=== PATIENT | female | born 1975 | race Hispanic/Latino ===

== ENCOUNTER 2020-07-12 08:52 | Emergency (ER) | payer SELFPAY ==
[2020-07-12] MEDS ORDERED: KETOROLAC 30MG VIAL (30MG/ML) ONE (09:08)
== END 2020-07-12 10:11 | disposition home or self-care (01) ==
LOC: EDH 08:52
DX: R07.89 Other chest pain (principal); Z72.0 Tobacco use; Z90.710 Acquired absence of both cervix and uterus
CPT/HCPCS: 71045; 93005; 96374; 99283; J1885

== ENCOUNTER 2020-09-06 10:49 | Emergency (ER) | payer SELFPAY ==
[2020-09-06] MEDS ORDERED: HYDROCODONE/ACETAMINOPHEN 10/325 MG TAB ONE (11:51)
[2020-09-06] MEDS ORDERED: KETOROLAC TROMETHAMINE 60 MG/2 ML VIAL ONE (11:52)
== END 2020-09-06 12:34 | disposition home or self-care (01) ==
LOC: EDH 10:49
DX: S80.01XA Contusion of right knee, initial encounter (principal); M17.11 Unilateral primary osteoarthritis, right knee; M41.9 Scoliosis, unspecified; Z72.0 Tobacco use; Z90.710 Acquired absence of both cervix and uterus; X58.XXXA Exposure to other specified factors, initial encounter; Y93.89 Activity, other specified; Y92.89 Other specified places as the place of occurrence of the external cause; Y99.8 Other external cause status
CPT/HCPCS: 29505; 73562; 96372; 99283; J1885

== ENCOUNTER 2020-11-09 04:58 | Emergency (ER) | payer SELFPAY ==
[~2020-11-09] VITALS: Ht 152.4 cm; Wt 81.6 kg
[2020-11-09] MEDS ORDERED: MAG HYDROX/AL HYDROX/SIMETH ES 30 ML SUSP UDCUP PO ONE (04:59)
[2020-11-09] MEDS ORDERED: LIDOCAINE HCL 2% VISCOUS 15 ML UDCUP PO ONE (04:59)
[2020-11-09] MEDS ORDERED: PREDNISONE 20 MG TABLET PO ONE (04:59)
[2020-11-09 05:16] VITALS: BP 120/60
[2020-11-09] MEDS ORDERED: ALBU8.5H8 IH (06:31)
[2020-11-09] MEDS ORDERED: BENZ-17 PO (06:31)
[2020-11-09] MEDS ORDERED: MAG HYDROX/AL HYDROX/SIMETH ES 30 ML SUSP UDCUP PO SCH (06:55)
[2020-11-09] MEDS ORDERED: LIDOCAINE HCL 2% VISCOUS 15 ML UDCUP PO SCH (06:55)
[2020-11-09] MEDS: PREDNISONE 20 MG TABLET PO SCH ×2 (07:03→07:04)
[2020-11-09 07:04] VITALS: BP 124/75
== END 2020-11-09 07:05 | disposition home or self-care (01) ==
LOC: EDH 04:58
DX: B34.9 Viral infection, unspecified (principal); R05 Cough; R07.89 Other chest pain; Z72.0 Tobacco use
CPT/HCPCS: 87635; 99284; C9803

== ENCOUNTER 2021-02-08 18:26 | Emergency (ER) | payer OTHER ==
[~2021-02-08] VITALS: Ht 152.4 cm; Wt 79.4 kg
[~2021-02-08 18:26] MED LIST: ALBU8.5H8 IH; BENZ-17 PO
[2021-02-08] MEDS ORDERED: D-ME1POW16 PO (19:25)
[2021-02-08] MEDS ORDERED: FLUT1DIS IH (19:25)
[2021-02-08] MEDS ORDERED: ALBUHFA IH (19:25)
[2021-02-08] MEDS ORDERED: IVER3TAB PO (19:25)
[2021-02-08 20:12] VITALS: BP 138/61
== END 2021-02-08 20:13 | disposition home or self-care (01) ==
LOC: EEVIPCON 18:26 → EDH 18:26
DX: U07.1 COVID-19 (principal); J22 Unspecified acute lower respiratory infection; B34.9 Viral infection, unspecified; F17.200 Nicotine dependence, unspecified, uncomplicated; Z79.51 Long term (current) use of inhaled steroids; Z79.899 Other long term (current) drug therapy
CPT/HCPCS: 87635; 87804 ×2; 87880; 99283; C9803

== ENCOUNTER 2022-10-11 20:40 | Emergency (ER) | payer OTHER ==
[~2022-10-11] VITALS: Ht 152.4 cm; Wt 56.2 kg
[~2022-10-11 20:40] MED LIST changes: +ALBUHFA IH; +D-ME1POW16 PO; +FLUT1DIS IH; +IVER3TAB PO
[2022-10-11] MEDS ORDERED: 0.9%NACL 1000ML 1,000 ML IV ONE (21:00)
[2022-10-11 21:14] LABS: BASOPHILS % (AUTO) 0.4 % (0.0-5.0); EOSINOPHILS % (AUTO) 0.8 % (0.0-8.0); HEMATOCRIT 35.4 % (36-48); LYMPHOCYTES % (AUTO) 38.5 % (21.0-51.0); MEAN CORPUSCULAR HEMOGLOBIN 27.8 pg (27.0-33.0); MEAN CORPUSCULAR HGB CONC 32.2 g/dL (32.0-36.0); MEAN CORPUSCULAR VOLUME 86.3 fL (79-99); MONOCYTES % (AUTO) 10.5 % (3.0-13.0); NEUTROPHILS % (AUTO) 49.6 % (40.0-77.0); PLATELET COUNT (AUTO) 253 K/uL (130-400); RED CELL DISTRIBUTION WIDTH 12.1 % (11.0-15.5); WHITE BLOOD COUNT (AUTO) 5.1 K/uL (4.8-10.8)
[2022-10-11 21:20] LABS: APPEARANCE,URINE CLEAR (CLEAR); BILIRUBIN,URINE NEGATIVE (NEGATIVE); COLOR,URINE LIGHT-YELLOW (YELLOW); GLUCOSE, URINE (UA) NEGATIVE (NEGATIVE); KETONES,URINE NEGATIVE (NEGATIVE); LEUKOCYTE ESTERASE ,URINE NEGATIVE Leu/uL (NEGATIVE); NITRATE,URINE NEGATIVE (NEGATIVE); OCCULT BLOOD,URINE NEGATIVE (NEGATIVE); PROTEIN,URINE NEGATIVE (NEGATIVE); UROBILINOGEN,URINE 0.2 mg/dL (0.2-1.0)
[2022-10-11 21:28] LABS: CREATININE 0.5 mg/dL (0.5-1.5); POTASSIUM 3.6 mmol/L (3.5-5.1)
[2022-10-11 21:33] LABS: ALBUMIN 3.5 g/dL (3.5-5.0); TOTAL PROTEIN, SERUM 7.5 g/dL (6.0-8.3)
[2022-10-11] MEDS ORDERED: KETOROLAC 15MG/ML VIAL (15MG/ML) IV ONE (22:00)
[2022-10-11] MEDS ORDERED: MORPHINE 2 MG SYG IVP ONE (22:00)
[2022-10-11] MEDS ORDERED: ACET-2079 PO (22:40)
[2022-10-11] MEDS ORDERED: IBUP-2070 PO (22:40)
[2022-10-11 22:54] VITALS: BP 132/81
== END 2022-10-11 22:55 | disposition home or self-care (01) ==
LOC: EDH 20:40
DX: M25.552 Pain in left hip (principal); M41.9 Scoliosis, unspecified; M54.50 Low back pain, unspecified; Z79.899 Other long term (current) drug therapy; Z98.890 Other specified postprocedural states; Z90.710 Acquired absence of both cervix and uterus
CPT/HCPCS: 99284; 96374; 96361; 96375; 80053; 85025; 81003; 36415; 73502; 72100; J7030; J1885

== ENCOUNTER 2022-11-02 07:20 | Emergency (ER) | payer OTHER ==
[~2022-11-02] VITALS: Ht 152.4 cm; Wt 56.7 kg
[~2022-11-02 07:20] MED LIST changes: +ACET-2079 PO; +IBUP-2070 PO
[2022-11-02 07:29] VITALS: BP 153/63
[2022-11-02 07:45] LABS: APPEARANCE,URINE CLEAR (CLEAR); BILIRUBIN,URINE NEGATIVE (NEGATIVE); COLOR,URINE YELLOW (YELLOW); GLUCOSE, URINE (UA) NEGATIVE (NEGATIVE); KETONES,URINE NEGATIVE (NEGATIVE); LEUKOCYTE ESTERASE ,URINE 250 Leu/uL (NEGATIVE); NITRATE,URINE NEGATIVE (NEGATIVE); OCCULT BLOOD,URINE NEGATIVE (NEGATIVE); PROTEIN,URINE 10 mg/dL (NEGATIVE); UROBILINOGEN,URINE 0.2 mg/dL (0.2-1.0)
[2022-11-02 07:52] LABS: AMPHET/METH SCREEN,URINE NEGATIVE (NEGATIVE); BARBITURATE SCREEN, URINE NEGATIVE (NEGATIVE); BENZODIAZEPINES SCREEN,URINE NEGATIVE (NEGATIVE); CANNABINOID SCREEN,URINE NEGATIVE (NEGATIVE); COCAINE SCREEN,URINE POSITIVE (NEGATIVE); OPIATE SCREEN,URINE NEGATIVE (NEGATIVE); PHENCYCLIDINE SCREEN,URINE NEGATIVE (NEGATIVE)
[2022-11-02 07:53] LABS: BACTERIA,URINE RARE /HPF (None Seen); MUCUS,URINE RARE LPF (None Seen); SQUAMOUS EPITHELIAL CELL,UR RARE /HPF (0-2); TRANSITIONAL EPI CELLS,URINE RARE /HPF (None Seen)
[2022-11-02 07:56] LABS: BASOPHILS % (AUTO) 0.4 % (0.0-5.0); HEMATOCRIT 32.3 % (36-48); LYMPHOCYTES % (AUTO) 46.8 % (21.0-51.0); MEAN CORPUSCULAR HEMOGLOBIN 28.5 pg (27.0-33.0); MEAN CORPUSCULAR HGB CONC 33.1 g/dL (32.0-36.0); MEAN CORPUSCULAR VOLUME 85.9 fL (79-99); MONOCYTES % (AUTO) 9.2 % (3.0-13.0); NEUTROPHILS % (AUTO) 42.5 % (40.0-77.0); PLATELET COUNT (AUTO) 214 K/uL (130-400); RED BLOOD CELL COUNT(AUTO) 3.76 MIL/uL (4.00-5.50); RED CELL DISTRIBUTION WIDTH 12.1 % (11.0-15.5); WHITE BLOOD COUNT (AUTO) 8.4 K/uL (4.8-10.8)
[2022-11-02 08:12] LABS: CARBON DIOXIDE 29 mmol/L (21-32); CHLORIDE 106 mmol/L (101-111); CREATININE 0.4 mg/dL (0.5-1.5); GLOMERULAR FILTR. RATE CALC 121 mL/min (>90); GLUCOSE,RANDOM 96 mg/dL (70-105); POTASSIUM 3.6 mmol/L (3.5-5.1); SODIUM SERUM 140 mmol/L (136-145); UREA NITROGEN, BLOOD 20 mg/dL (7-18)
[2022-11-02 08:16] LABS: ALANINE AMINOTRANSFERASE 30 U/L (12-78); ALBUMIN 3.5 g/dL (3.5-5.0); ASPARTATE AMINOTRANSFERASE 23 U/L (10-37)
[2022-11-02 08:23] LABS: ACETAMINOPHEN < 1 mcg/mL (10-30); SALICYLATE < 2.8 mg/dL (2.8-20.0)
[2022-11-02] MEDS ORDERED: CEPHALEXIN 500 MG CAPSULE PO ONE (09:30)
[2022-11-02] MEDS ORDERED: MACR100 PO (12:39)
== END 2022-11-02 12:48 | disposition home or self-care (01) ==
LOC: EDH 07:20
DX: F32.A Depression, unspecified (principal); N30.00 Acute cystitis without hematuria; F14.10 Cocaine abuse, uncomplicated; F41.9 Anxiety disorder, unspecified; Z20.822 Contact with and (suspected) exposure to COVID-19; Z90.710 Acquired absence of both cervix and uterus; Z79.899 Other long term (current) drug therapy; Z98.890 Other specified postprocedural states
CPT/HCPCS: 99283; 87635; 80053; 80305; 85025; 87088; 36415; 81001; G0481; C9803

== ENCOUNTER 2024-02-26 14:35 | Emergency (ER) | payer SELFPAY ==
[~2024-02-26] VITALS: Ht 152.4 cm; Wt 83.5 kg
[~2024-02-26 14:35] MED LIST changes: -ACET-2079 PO; -ALBU8.5H8 IH; -ALBUHFA IH; +ATEN25TA PO; -BENZ-17 PO; -D-ME1POW16 PO; -FLUT1DIS IH; -IBUP-2070 PO; -IVER3TAB PO; +METHI10 PO
[2024-02-26] MEDS: ibuPROFEN 800 MG TAB PO ONE (15:35)
[2024-02-26] MEDS: HYDROcodone/APAP 5/325 1 TAB TABLET PO ONE (15:35)
[2024-02-26] MEDS ORDERED: IBUP-2077 PO (16:42)
[2024-02-26 16:56] VITALS: BP 124/68; PULSE 74; RESP 20; TEMP 97.5; O2SAT 99
== END 2024-02-26 17:08 | disposition home or self-care (01) ==
LOC: EDH 14:35
DX: S83.91XA Sprain of unspecified site of right knee, initial encounter (principal); F31.9 Bipolar disorder, unspecified; F41.9 Anxiety disorder, unspecified; E03.9 Hypothyroidism, unspecified; F17.210 Nicotine dependence, cigarettes, uncomplicated; Z79.899 Other long term (current) drug therapy; Z90.710 Acquired absence of both cervix and uterus; Z98.890 Other specified postprocedural states; W01.0XXA Fall on same level from slipping, tripping and stumbling without subsequent striking against object, initial encounter; Y93.89 Activity, other specified; Y92.89 Other specified places as the place of occurrence of the external cause; Y99.8 Other external cause status
CPT/HCPCS: 29505; 73562

== ENCOUNTER 2024-05-15 15:15 | Emergency (ER) | payer SELFPAY ==
[~2024-05-15] VITALS: Ht 152.4 cm; Wt 86.2 kg
[~2024-05-15 15:15] MED LIST changes: +IBUP-2077 PO; +METH-1037 PO; -METHI10 PO
--- NOTE | 2024-05-15 15:26 | ERN ---
ED Note History of Present Illness Stated Complaint: ABD PAIN Chief Complaint: Abdominal Pain Time Seen by MD: 15:17 Dictation: PATIENT IS A 48-YEAR-OLD FEMALE COMING IN TODAY WITH MID GASTRIC PAIN TENDERNESS SHE HAS HAD FOR SEVERAL DAYS. SHE DENIES FEVER CHILLS NAUSEA VOMITING. SHE STATES EIGHT MONTHS AGO SHE WAS DIAGNOSED AT [facility] WITH AN ABDOMINAL HERNIA HOWEVER HAS NEVER SEEN A SURGEON NOR HAS SHE TOLD HER PRIMARY CARE DOCTOR. NO CHEST PAIN NO BACK PAIN NO SOB. Allergies: Coded Allergies: No Known Drug Allergies (Unverified Allergy, Unknown, 07/12/20) Home Meds Active Scripts Ibuprofen (Ibuprofen 800 mg Tab) 800 Mg Tab, 800 MG PO Q6H PRN for PAIN, #30 TAB Prov:ANDI LOPEZ DEVELOPER [employer]CH[employer]ICAL 02/26/24 Methimazole (Tapazole) 10 Mg Tab, 10 MG PO TID, #90 TAB Prov:FREDDY MELO IV, MD 07/22/23 Atenolol (Atenolol) 25 Mg Tablet, 25 MG PO DAILY, #30 TAB Prov:FREDDY MELO IV, MD 07/22/23 Past Medical History Past Medical History: Anxiety, Bipolar, CAD, Depression, Heart Disease, Hyperthyroid Additional Past Medical Hx: PTSD Surgical History: Hysterectomy, Surgical History Other: Social History: Smokers History: Not Applicable RN Note Reviewed/Agreed w/PFSH: Yes Review of System Dictation CONSTITUTIONAL: NEGATIVE EXCEPT FOR HPI HEAD/FACE: NEGATIVE EXCEPT FOR HPI EENT: NEGATIVE EXCEPT FOR HPI RESPIRATORY: NEGATIVE EXCEPT FOR HPI GASTROINTESTINAL/ABDOMINAL: NEGATIVE EXCEPT FOR HPI MID GASTRIC TENDERNESS. GENITOURINARY: NEGATIVE EXCEPT FOR HPI MUSCULOSKELETAL: NEGATIVE EXCEPT FOR HPI INTEGUMENTARY: NEGATIVE EXCEPT FOR HPI NEUROLOGICAL/PSYCH: NEGATIVE EXCEPT FOR HPI HEMATOLOGIC/LYMPHATIC: NEGATIVE EXCEPT FOR HPI ALL SYSTEMS NEGATIVE, EXCEPT NOTED ABOVE. 13 POINT REVIEW OF SYSTEMS ASSESSED AND ALL NEGATIVE EXCEPT FOR ABOVE. Initial Vital Sign VS Vital Signs Date Time Temp Pulse Resp B/P (MAP) Pulse Ox O2 Delivery O2 Flow Rate FiO2 05/15/24 15:18 98.2 68 18 129/62 98 05/15/24 17:00 Room Air* 0 21 Physical Exam Dictation VITAL SIGNS REVIEWED GENERAL APPEARANCE: ALERT, ORIENTED X 3, MILD ACUTE DISTRESS, WELL DEVELOPED, NOURISHED. HEAD AND FACE: NON-TRAUMATIC. EYES: PERRL, PINK CONJUNCTIVAS, EYELID NO TRAUMA, ANTERIOR CHAMBER WITH ARCUS SENILIS. EARS: PINNAS INTACT AND NO SIGNS OF TRAUMA OR ERYTHEMA EAR CANALS CLEAR AND NO DISCHARGE TM NO ERYTHEMA NOSE: NO DISCHARGE, NO BLEEDING. OROPHARYNX: MOUTH NORMAL, TONGUE PINK, PHARYNX CLEAR,NO ERYTHEMA, TONSILS NO EXUDATES, NO ABSCESSES NOTED, MUCOUS MEMBRANE MOIST NECK: SUPPLE, NON-TENDER, NO THYROMEGALY, NO MASSES, NO JVD, NO BRUITS BREAST:DEFERRED CHEST:NO TENDERNESS, NO CREPITUS, NO PARADOXICAL MOVEMENT, NO RETRACTIONS LUNGS:CLEAR, WELL-VENTILATED, SYMMETRIC, NO RALES, NO WHEEZING, NO RHONCHI, NO STRIDOR, GOOD BREATH SOUNDS BILATERALLY HEART: REGULAR RATE, REGULAR RHYTHM, NO MURMUR, NO GALLOPS VASCULAR: NO PERIPHERAL EDEMA, ABDOMEN: SOFT, POSITIVE BOWEL SOUNDS, NONDISTENDED, NO GUARDING, NO REDUCIBLE MASS, TENDERNESS TO SUPERIOR UMBILICAL AREA. RECTAL: DEFERRED GENITAL: DEFERRED NEUROLOGICAL: NORMAL SPEECH, MOTOR FUNCTION INTACT, SENSORY FUNCTION INTACT MUSCULOSKELETAL: NECK NONTENDER, FULL RANGE OF MOTION, BACK NONTENDER, FULL RANGE OF MOTION, EXTREMITIES: NONTENDER, FULL RANGE OF MOTION SKIN: COLOR PINK, DRY, NO TURGOR, NO RASH, NO LACERATIONS, NO ABRASIONS, NO CONT USIONS. LYMPHATIC: DEFERRED Results (Laboratory/Radiology) Laboratory/Radiology Laboratory Tests Test 05/15/24 15:37 05/15/24 15:40 White Blood Count 9.9 K/uL (4.8-10.8) Red Blood Count 4.21 MIL/uL (4.00-5.50) Hemoglobin 12.3 g/dL (12.0-16.0) Hematocrit 37.6 % (36-48) Mean Corpuscular Volume 89.3 fL (79-99) Mean Corpuscular Hemoglobin 29.2 pg (27.0-33.0) Mean Corpuscular Hemoglobin Concent 32.7 g/dL (32.0-36.0) Red Cell Distribution Width 13.0 % (11.0-15.5) Platelet Count 321 K/uL (130-400) Mean Platelet Volume 9.2 fL (7.5-10.5) Immature Granulocyte % (Auto) 0.3 % (0-1) Neutrophils (%) (Auto) 53.4 % (40.0-77.0) Lymphocytes (%) (Auto) 35.2 % (21.0-51.0) Monocytes (%) (Auto) 8.8 % (3.0-13.0) Eosinophils (%) (Auto) 1.6 % (0.0-8.0) Basophils (%) (Auto) 0.7 % (0.0-5.0) Neutrophils # (Auto) 5.3 K/uL (1.8-7.7) Lymphocytes # (Auto) 3.5 K/uL (1.0-4.8) Monocytes # (Auto) 0.9 K/uL (0.1-1.0) Eosinophils # (Auto) 0.16 K/uL (0.00-0.70) Basophils # (Auto) 0.07 K/uL (0.00-0.20) Absolute Immature Granulocyte (auto 0.03 K/uL (0-1) Nucleated Red Blood Cells 0.0 % (0.0-0.19) Sodium Level 141 mmol/L (136-145) Potassium Level 4.5 mmol/L (3.5-5.1) Chloride Level 105 mmol/L (101-111) Carbon Dioxide Level 30 mmol/L (21-32) Blood Urea Nitrogen 13 mg/dL (7-18) Creatinine 0.7 mg/dL (0.5-1.0) Glomerular Filtration Rate Calc 105 mL/min (>90) Random Glucose 94 mg/dL (70-105) Total Calcium 9.1 mg/dL (8.5-10.1) Lipase 22 U/L (16-77) Urine Color LIGHT-YELLOW (YELLOW) Urine Appearance CLEAR (CLEAR) Urine pH 6.0 (5.0-8.0) Urine Specific [place] 1.014 (1.001-1.031) Urine Protein NEGATIVE mg/dL (NEGATIVE) Urine Glucose (UA) NEGATIVE mg/dL (NEGATIVE) Urine Ketones NEGATIVE mg/dL (NEGATIVE) Urine Occult Blood NEGATIVE (NEGATIVE) Urine Nitrate NEGATIVE (NEGATIVE) Urine Bilirubin NEGATIVE mg/dL (NEGATIVE) Urine Urobilinogen 0.2 mg/dL (0.2-1.0) Urine Leukocyte Esterase NEGATIVE Jagdeep/uL FINDINGS: The lung bases are clear. The liver and spleen are unremarkable. The gallbladder surgically absent. The pancreas and adrenal glands and kidneys and bladder are unremarkable. There is no identified free air or free fluid. There is no bulky abdominal or retroperitoneal lymphadenopathy. There is no identified bowel obstruction. The uterus is surgically absent. The appendix is within normal limits. The bony structures demonstrate grade 1 anterolisthesis of L4 on L5 which is a stable finding. The anterior abdominal wall is unremarkable. IMPRESSION: There are no acute findings. There is no identified umbilical or ventral hernia. Change in prior cholecystectomy and hysterectomy Labs Reviewed?: Yes ED Course ED Course Orders Procedure Category Date Status Time Cbc With Differential LAB 05/15/24 Complete 15:22 Urinalysis Profile LAB 05/15/24 Complete 15:22 Ct Abdomen/Pelvis CT 05/15/24 Resulted W/Contrast 15:22 0.9%Nacl 1000ml (Ns PHA 05/15/24 Complete 1000ml) 15:30 Ketorolac PHA 05/15/24 Complete Tromethamine 30mg/Ml 15:30 Lipase LAB 05/15/24 Complete 15:22 Basic Metabolic Panel LAB 05/15/24 Complete 15:22 Potassium Bicarb/Cit PHA 05/15/24 Complete Ac 25meq (K-Lyte Ta 16:00 Iohexol (Omnipaque) PHA 05/15/24 Complete 16:07 Current Medications Medications (Trade) Dose Ordered Sig/Elvia Route PRN Reason Start Time Stop Time Status Last Admin Dose Admin Iohexol (Omnipaque) 75 ml STK-MED ONCE IV 05/15/24 16:07 05/15/24 16:12 DC Ketorolac Tromethamine (toRADol) 30 mg ONCE ONCE IVP 05/15/24 15:30 05/15/24 15:31 DC 05/15/24 16:31 Potassium Bicarbonate (K-Lyte Tablet Eff 25 Meq Tablet.eff) 25 meq ONCE ONCE PO 05/15/24 16:00 05/15/24 16:04 DC Sodium Chloride 1,000 ml @ 0 mls/hr ONCE ONCE IV 05/15/24 15:30 05/15/24 15:31 DC 05/15/24 16:31 Vital Signs Date Time Temp Pulse Resp B/P (MAP) Pulse Ox O2 Delivery O2 Flow Rate FiO2 05/15/24 17:00 97.9 58 18 114/58 98 Room Air* 0 21 05/15/24 15:18 98.2 68 18 129/62 98 SEVENTEEN 15, PATIENT DISCHARGED HOME WITH NO ACUTE FINDING INCLUDING A NEGATIVE CT OF THE DOES NOT DEMONSTRATE A HERNIA. PATIENT TOLD TO SEE HER PRIMARY CARE DOCTOR ON FRIDAY OR FRIDAY FOR FOLLOW UP AND MANAGE Medical Decision Making MDM MDM: DIFFERENTIAL DIAGNOSIS: INCARCERATED HERNIA/UMBILICAL HERNIA/PANCREATITIS/UTI/ELECTROLYTE IMBALANCE/DEHYDRATION/DIVERTICULITIS RATIONALE: TESTS CONSIDERED AND ORDERED SECONDARY TO SHARED DECISION MAKING INCLUDE: LABS/RADIOLOGY PREVIOUS OUTSIDE RECORDS REVIEWED: OLD ER VISITS. REVIEWED RISK OF COMPLICATION AND/OR MORBIDITY OR MORTALITY OF PATIENT MANAGEMENT: NONE MEDICATIONS-PER MEDICATION RECONCILIATION NEED FOR HOSPITALIZATION: PATIENT DOES NOT MEET CRITERIA FOR HOSPITALIZATION. NONE NEED FOR EMERGENCY MAJOR/MINOR SURGERY: NO THERE ARE NO SOCIAL CONCERNS WITH THIS PATIENT. PRESCRIPTION DRUG MANAGEMENT NONE PRESCRIPTIONS WILL INCLUDE SYMPTOMATIC CARE PATIENT'S PRIOR EXTERNAL MEDICAL RECORDS FROM OTHER ER VISITS WERE REVIEWED BY ME INDICATED. PRIOR TESTING AND RESULTS FROM PREVIOUS VISITS WERE REVIEWED. PRIOR TESTS WERE TAKEN INTO ACCOUNT WITH MEDICAL DECISION MAKING AND RESOURCE UTILIZATION, INDEPENDENT HISTORIAN/HISTORIANS WERE USED TO OBTAIN COMPLETE MEDICAL HISTORY. I INDEPENDENTLY INTERPRETED THE TEST THAT WERE PERFORMED, RESULTS WERE REVIEWED BY ME AND CONSIDERED FINDINGS ON RADIOLOGY IF ORDERED. MEDICAL MANAGEMENT AND EXAMINATION INTERPRETATION DISCUSSIONS WERE HAD BY ME WITH OTHER QUALIFIED HEALTHCARE PROFESSIONALS INDICATED FOR THE PATIENT'S CARE. DX & DISP Disposition: Discharge Departure Impression: Primary Impression: Diffuse abdominal pain Condition: Stable Additional Instructions: FOLLOW-UP WITH PRIMARY CARE PROVIDER IN 1 TO 2 DAYS. TAKE MEDICATIONS DIRECTED HERE IN THE EMERGENCY ROOM. OKAY TO CONTINUE HOME MEDICATIONS UNLESS OTHERWISE DISCUSSED DURING YOUR VISIT IN THE EMERGENCY ROOM TODAY. RETURN TO YOUR NEAREST EMERGENCY ROOM IF SYMPTOMS WORSEN OR IF THERE IS NO IMPROVEMENT. CALL 911 IF YOU NEED IMMEDIATE ASSISTANCE. TAKE TYLENOL OR MOTRIN [id number] NEEDED AND IF NO CONTRAINDICATIONS ARE PRESENT. INCREASE ORAL HYDRATION. A WOUND CULTURE OR URINE CULTURE WAS ORDERED HERE IN THE EMERGENCY ROOM DEPARTMENT PLEASE FOLLOW-UP WITH PRIMARY CARE PROVIDER AND ADVISE THEM TO GET REPEAT PORTS FROM OUR FACILITY. IF YOU HAD ANY ARIANNA WRAP/SPLINTS THAT WERE APPLIED HERE, PLEASE DO NOT REMOVE THEM UNTIL YOU SEE YOUR PRIMARY CARE OR SPECIALTY. TAKE TYLENOL OR A LEAVE [id number] NEEDED FOR PAIN. DIET AND ACTIVITY TOLERATED AND SEE YOUR PRIMARY CARE DOCTOR ON FRIDAY OR FRIDAY FOR FOLLOW UP Referrals: NONE (PCP) Time of Disposition: 17:15 I have reviewed the case, and I agree with, Diagnosis and Plan ANDI LOPEZ NP 7, 2024 15:26
[2024-05-15 15:48] LABS: BASOPHILS # (AUTO) 0.07 K/uL (0.00-0.20); BASOPHILS % (AUTO) 0.7 % (0.0-5.0); EOSINOPHILS # (AUTO) 0.16 K/uL (0.00-0.70); EOSINOPHILS % (AUTO) 1.6 % (0.0-8.0); HEMATOCRIT 37.6 % (36-48); IMMATURE GRANULOCYTE ABSOLUTE 0.03 K/uL (0-1); LYMPHOCYTES # (AUTO) 3.5 K/uL (1.0-4.8); LYMPHOCYTES % (AUTO) 35.2 % (21.0-51.0); MEAN CORPUSCULAR HEMOGLOBIN 29.2 pg (27.0-33.0); MEAN CORPUSCULAR HGB CONC 32.7 g/dL (32.0-36.0); MEAN CORPUSCULAR VOLUME 89.3 fL (79-99); MONOCYTES # (AUTO) 0.9 K/uL (0.1-1.0); MONOCYTES % (AUTO) 8.8 % (3.0-13.0); NEUTROPHILS # (AUTO) 5.3 K/uL (1.8-7.7); NEUTROPHILS % (AUTO) 53.4 % (40.0-77.0); PLATELET COUNT (AUTO) 321 K/uL (130-400); RED BLOOD CELL COUNT(AUTO) 4.21 MIL/uL (4.00-5.50); WHITE BLOOD COUNT (AUTO) 9.9 K/uL (4.8-10.8)
[2024-05-15 15:51] LABS: APPEARANCE,URINE CLEAR (CLEAR); BILIRUBIN,URINE NEGATIVE (NEGATIVE); COLOR,URINE LIGHT-YELLOW (YELLOW); GLUCOSE, URINE (UA) NEGATIVE (NEGATIVE); KETONES,URINE NEGATIVE (NEGATIVE); LEUKOCYTE ESTERASE ,URINE NEGATIVE Leu/uL (NEGATIVE); NITRATE,URINE NEGATIVE (NEGATIVE); OCCULT BLOOD,URINE NEGATIVE (NEGATIVE); PROTEIN,URINE NEGATIVE (NEGATIVE); UROBILINOGEN,URINE 0.2 mg/dL (0.2-1.0)
[2024-05-15 15:52] LABS: ADD UA MICROSCOPIC NO
[2024-05-15 15:55] LABS: CREATININE 0.7 mg/dL (0.5-1.0); POTASSIUM 4.5 mmol/L (3.5-5.1)
[2024-05-15] MEDS ORDERED: PoTASSium BIcarbonate/CIT AC 25 MEQ TABLET.EFF PO ONE (16:00)
[2024-05-15] MEDS ORDERED: IOHEXOL-350 75 ML VIAL IV ONE (16:07)
[2024-05-15] MEDS: ketOROlac 30MG VIAL (30MG/ML) IVP ONE (16:31)
[2024-05-15] MEDS: 0.9%NACL 1000ML 1,000 ML IV ONE (16:31)
--- NOTE | 2024-05-15 17:10 | HMCIMG ---
CT ABDOMEN/PELVIS W/CONTRAST CLINICAL HISTORY: TENDER TO MIDLINE SUPER UMBILICAL AREA HISTORY OF HERNIA COMPARISON: 07/18/2023 TECHNIQUE: Sequential axial images of abdomen and pelvis with 75 mL of Omnipaque 350 IV contrast with sagittal and coronal reconstructions. CT was performed with one or more of the following dose reduction techniques: automated exposure control, adjustment of the mA and/or kV according to patient size, or use of iterative reconstruction technique. FINDINGS: The lung bases are clear. The liver and spleen are unremarkable. The gallbladder surgically absent. The pancreas and adrenal glands and kidneys and bladder are unremarkable. There is no identified free air or free fluid. There is no bulky abdominal or retroperitoneal lymphadenopathy. There is no identified bowel obstruction. The uterus is surgically absent. The appendix is within normal limits. The bony structures demonstrate grade 1 anterolisthesis of L4 on L5 which is a stable finding. The anterior abdominal wall is unremarkable. IMPRESSION: There are no acute findings. There is no identified umbilical or ventral hernia. Change in prior cholecystectomy and hysterectomy
[2024-05-15 18:12] VITALS: BP 134/72; PULSE 78; RESP 15; TEMP 97.5; O2SAT 97
== END 2024-05-15 18:14 | disposition home or self-care (01) ==
LOC: EDH 15:15
DX: R10.84 Generalized abdominal pain (principal); I25.10 Atherosclerotic heart disease of native coronary artery without angina pectoris; F41.9 Anxiety disorder, unspecified; F32.A Depression, unspecified; F17.200 Nicotine dependence, unspecified, uncomplicated; Z79.899 Other long term (current) drug therapy; Z90.710 Acquired absence of both cervix and uterus
CPT/HCPCS: 99285; 74177; 96374; 96361; 80048; 83690; 85025; 81003; 36415; J7030; J1885; Q9967

== ENCOUNTER 2024-10-19 20:03 | Emergency (ER) | payer SELFPAY ==
[~2024-10-19] VITALS: Ht 149.9 cm; Wt 92.5 kg
[2024-10-19] MEDS: ketOROlac 15MG/ML VIAL (15MG/ML) IV ONE (20:47)
[2024-10-19] MEDS: morPHINE 2 MG SYG IVP ONE (20:47)
[2024-10-19] MEDS: ondanSETRON 4MG INJ IVP ONE (20:47)
[2024-10-19] MEDS ORDERED: KETO10TA2 PO (21:13)
--- NOTE | 2024-10-19 21:16 | ERN ---
General Chief Complaint: Hip Pain/Injury Stated Complaint: HIP PAIN Time Seen by MD: 20:04 Time Seen by Midlevel: 20:04 Source: patient History of Present Illness Initial Comments The patient is a 49-year-old female presenting to the emergency department for pain control. 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 Denies any trauma. She already saw talent acquisition specialist and they are planning a repeat consult later this year. Allergies: Coded Allergies: No Known Drug Allergies (Unverified Allergy, Unknown, 07/12/20) Home Meds Active Scripts Ibuprofen (Ibuprofen 800 mg Tab) 800 Mg Tab, 800 MG PO Q6H PRN for PAIN, #30 TAB Prov:ANDI LOPEZ BLANKET INSPECTOR 02/26/24 Methimazole (Tapazole) 10 Mg Tab, 10 MG PO TID, #90 TAB Prov:FREDDY MELO IV, MD 07/22/23 Atenolol (Atenolol) 25 Mg Tablet, 25 MG PO DAILY, #30 TAB Prov:FREDDY MELO IV, MD 07/22/23 Past Medical History Past Medical History: Anxiety, Depression, Hypothyroid Medical History Other: PTSD Past Surgical History: Hysterectomy, Surgical History Other: Social History Social History: Smokers Female( History) History: Not Applicable ROS Dictation CONSTITUTIONAL: Negative except for HPI HEAD/FACE: Negative except for HPI EENT: Negative except for HPI RESPIRATORY: Negative except for HPI GASTROINTESTINAL/ABDOMINAL: Negative except for HPI GENITOURINARY: Negative except for HPI MUSCULOSKELETAL: Negative except for HPI INTEGUMENTARY: Negative except for HPI NEUROLOGICAL/PSYCH: Negative except for HPI HEMATOLOGIC/LYMPHATIC: Negative except for HPI All Systems Negative, Except as noted above. 13 point review of systems assessed and all negative except for above. Physical Exam Physical Exam Dictation Vital Signs reviewed General Appearance: Alert, oriented x 3, no acute distress, well developed, nourished. Head and Face: non-traumatic. Eyes: PERRL, pink conjunctivas, eyelid no trauma, anterior chamber with arcus senilis. Ears: Pinnas intact and no signs of trauma or erythema ear canals clear and no discharge TM no erythema Nose: No discharge, no bleeding. Oropharynx: Mouth normal, tongue pink, pharynx clear,no erythema, tonsils no exudates, no abscesses noted, mucous membrane moist Neck: Supple, non-tender, no thyromegaly, no masses, no JVD, no bruits Breast:Deferred Chest:No tenderness, no crepitus, no paradoxical movement, no retractions Lungs:Clear, well-ventilated, symmetric, no rales, no wheezing, no rhonchi, no stridor, good breath sounds bilaterally Heart: Regular rate, regular rhythm, no murmur, no gallops Vascular: no peripheral edema, Abdomen: Soft, positive bowel sounds, nondistended, no guarding, nontender, no rebound, no masses no hepatomegaly, no splenomegaly, no Guerra's sign, no hernias. Rectal: Deferred Genital: Deferred Neurological: Normal speech, motor function intact, sensory function intact Musculoskeletal: Neck nontender, full range of motion, back nontender, full range of motion, Extremities: nontender, full range of motion Skin: Color pink, dry, no turgor, no rash, no lacerations, no abrasions, no contusions. Lymphatic: Deferred MDM MDM: The patient is a 49-year-old female presenting to the emergency department for pain control. 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 Denies any trauma. She already saw talent acquisition specialist and they are planning a repeat consult later this year. On physical examination the patient appears uncomfortable secondary to pain. I did offer an x-ray but she refused stating she is here for pain control. Patient was given Toradol and morphine IV will be discharged home with supportive management. Differential diagnosis: Intractable pain, hip pain, hip osteoarthritis There are no social concerns with this patient. Prescription drug management Prescriptions will include: Toradol Medical management and examination interpretation discussions were had by me with other qualified healthcare professionals as indicated for the patient's care. ED Course Orders Procedure Category Date Status Time Ketorolac PHA 10/19/24 Complete Tromethamine 15mg/Ml 21:00 Morphine 2mg Syg PHA 10/19/24 Complete (Morphine 2mg Syg) 21:00 Ondansetron 4mg Inj PHA 10/19/24 Complete (Zofran 4mg Inj) 21:00 Current Medications Medications (Trade) Dose Ordered Sig/Elvia Route PRN Reason Start Time Stop Time Status Last Admin Dose Admin Ketorolac Tromethamine (toRADol) 15 mg ONCE ONCE IV 10/19/24 21:00 10/19/24 21:01 DC 10/19/24 20:47 Morphine Sulfate (morPHINE 2MG SYG) 2 mg ONCE ONCE IVP 10/19/24 21:00 10/19/24 21:01 DC 10/19/24 20:47 Ondansetron HCl (zoFRAN 4MG INJ) 4 mg ONCE ONCE IVP 10/19/24 21:00 10/19/24 21:01 DC 10/19/24 20:47 Vital Signs Date Time Temp Pulse Resp B/P (MAP) Pulse Ox O2 Delivery O2 Flow Rate FiO2 10/19/24 20:17 98.8 104 20 155/96 100 Room Air DX & DISP Disposition: Discharge Departure Impression: Primary Impression: Left hip pain Condition: Stable Scripts Ketorolac Tromethamine (Ketorolac Tromethamine) 10 Mg Tablet 1 TAB PO TID for pain for 5 Days, #15 TAB 0 Refills Prov: TOMMIE PAUL 10/19/24 Referrals: JADA JENNINGS (PCP) Time of Disposition: 21:13 I have reviewed the case, and I agree with, Diagnosis and Plan I performed the substantive portion of the visit. I have reviewed and personally made and approve the management plan that is documented in the note by myself or the SEAN. I acknowledge for responsibility for the patient's management plan. TOMMIE PAUL October 19, 2024 21:16
[2024-10-19 21:33] VITALS: BP 127/65; PULSE 78; RESP 18; TEMP 97.9; O2SAT 98
== END 2024-10-19 21:35 | disposition home or self-care (01) ==
LOC: EDH 20:03
DX: M25.552 Pain in left hip (principal); E03.9 Hypothyroidism, unspecified; F17.200 Nicotine dependence, unspecified, uncomplicated; F41.9 Anxiety disorder, unspecified; Z79.899 Other long term (current) drug therapy; Z90.710 Acquired absence of both cervix and uterus
CPT/HCPCS: 99284; 96374; 96375; J1885; J2270; J2405

== ENCOUNTER 2025-03-07 18:22 | Emergency (ER) | payer SELFPAY ==
[~2025-03-07] VITALS: Ht 149.9 cm; Wt 92.1 kg
[~2025-03-07 18:22] MED LIST changes: +KETO10TA2 PO
--- NOTE | 2025-03-07 18:35 | ERN ---
ED Note History of Present Illness Stated Complaint: POST OP PAIN, S/P HIP REPLACEMENT Chief Complaint: Post-Op Problem Time Seen by MD: 18:26 Dictation: PATIENT IS A 49-YEAR-OLD FEMALE HERE WITH COMPLAINTS OF SEVERE LEFT HIP PAIN ONSET WAS TWO WEEKS AGO. SHE IS STATUS POST A LEFT TOTAL HIP REPLACEMENT BY DR. MARIO WALKER AT [facility]. HE WAS SHE WAS DISCHARGED HOME AND HAS BEEN TAKING TYLENOL NO. 3 WITH A IBUPROFEN AND STATES THE PAIN HAS BEEN GETTING WORSE AND HE CAN NOT SEE YOUR FOR NEXT COUPLE OF DAYS. SHE HAS HAD NO FEVER NO CHILLS THERE IS NO SHORTENING OR ROTATION OF THE LEFT LEG AND THERE HAS BEEN NO TRAUMA SINCE THE SURGERY. DISTAL NEUROVASCULAR CMS INTACT. Allergies: Coded Allergies: No Known Drug Allergies (Unverified Allergy, Unknown, 07/12/20) Home Meds Active Scripts Ketorolac Tromethamine (Ketorolac Tromethamine) 10 Mg Tablet, 1 TAB PO TID for pain for 5 Days, #15 TAB 0 Refills Prov:TOMMIE PAUL PA 10/19/24 Ibuprofen (Ibuprofen 800 mg Tab) 800 Mg Tab, 800 MG PO Q6H PRN for PAIN, #30 TAB Prov:ANDI LOPEZ NP 02/26/24 Methimazole (Tapazole) 10 Mg Tab, 10 MG PO TID, #90 TAB Prov:FREDDY MELO IV, MD 07/22/23 Atenolol (Atenolol) 25 Mg Tablet, 25 MG PO DAILY, #30 TAB Prov:FREDDY MELO IV, MD 07/22/23 Past Medical History Past Medical History: Anxiety, Depression, Hypothyroid Additional Past Medical Hx: PTSD Surgical History: Hysterectomy, Surgical History Other: Social History: Smokers History: Not Applicable RN Note Reviewed/Agreed w/PFSH: Yes Review of System Dictation CONSTITUTIONAL: NEGATIVE EXCEPT FOR HPI HEAD/FACE: NEGATIVE EXCEPT FOR HPI EENT: NEGATIVE EXCEPT FOR HPI RESPIRATORY: NEGATIVE EXCEPT FOR HPI GASTROINTESTINAL/ABDOMINAL: NEGATIVE EXCEPT FOR HPI GENITOURINARY: NEGATIVE EXCEPT FOR HPI MUSCULOSKELETAL: NEGATIVE EXCEPT FOR HPI POSTSURGICAL LEFT HIP PAIN INTEGUMENTARY: NEGATIVE EXCEPT FOR HPI NEUROLOGICAL/PSYCH: NEGATIVE EXCEPT FOR HPI HEMATOLOGIC/LYMPHATIC: NEGATIVE EXCEPT FOR HPI ALL SYSTEMS NEGATIVE, EXCEPT NOTED ABOVE. 13 POINT REVIEW OF SYSTEMS ASSESSED AND ALL NEGATIVE EXCEPT FOR ABOVE. Initial Vital Sign VS Vital Signs Date Time Temp Pulse Resp B/P (MAP) Pulse Ox O2 Delivery O2 Flow Rate FiO2 03/07/25 18:24 98.4 100 20 158/87 99 Room Air 0 Physical Exam Dictation VITAL SIGNS REVIEWED GENERAL APPEARANCE: ALERT, ORIENTED X 3, SEVERE ACUTE DISTRESS, WELL DEVELOPED, NOURISHED. OBESE HEAD AND FACE: NON-TRAUMATIC. EYES: PERRL, PINK CONJUNCTIVAS, EYELID NO TRAUMA, ANTERIOR CHAMBER WITH ARCUS SENILIS. EARS: PINNAS INTACT AND NO SIGNS OF TRAUMA OR ERYTHEMA EAR CANALS CLEAR AND NO DISCHARGE TM NO ERYTHEMA NOSE: NO DISCHARGE, NO BLEEDING. OROPHARYNX: MOUTH NORMAL, TONGUE PINK, PHARYNX CLEAR,NO ERYTHEMA, TONSILS NO EXUDATES, NO ABSCESSES NOTED, MUCOUS MEMBRANE MOIST NECK: SUPPLE, NON-TENDER, NO THYROMEGALY, NO MASSES, NO JVD, NO BRUITS BREAST:DEFERRED CHEST:NO TENDERNESS, NO CREPITUS, NO PARADOXICAL MOVEMENT, NO RETRACTIONS LUNGS:CLEAR, WELL-VENTILATED, SYMMETRIC, NO RALES, NO WHEEZING, NO RHONCHI, NO STRIDOR, GOOD BREATH SOUNDS BILATERALLY HEART: REGULAR RATE, REGULAR RHYTHM, NO MURMUR, NO GALLOPS VASCULAR: NO PERIPHERAL EDEMA, ABDOMEN: SOFT, POSITIVE BOWEL SOUNDS, NONDISTENDED, NO GUARDING, NONTENDER, NO REBOUND, NO MASSES NO HEPATOMEGALY, NO SPLENOMEGALY, NO YAP'S SIGN, NO HERNIAS. RECTAL: DEFERRED GENITAL: DEFERRED NEUROLOGICAL: NORMAL SPEECH, MOTOR FUNCTION INTACT, SENSORY FUNCTION INTACT MUSCULOSKELETAL: NECK NONTENDER, FULL RANGE OF MOTION, BACK NONTENDER, FULL RANGE OF MOTION, EXTREMITIES: NONTENDER, FULL RANGE OF MOTION WELL GRANULATED INCISION LINE TO LEFT LATERAL HIP. NO SHORTENING OR ROTATION OF LEFT LEG NO ERYTHEMA NO INDURATION DISTAL NEUROVASCULAR CMS INTACT SKIN: COLOR PINK, DRY, NO TURGOR, NO RASH, NO LACERATIONS, NO ABRASIONS, NO CONTUSIONS. LYMPHATIC: DEFERRED Results (Laboratory/Radiology) Labs Reviewed?: Yes ED Course ED Course Orders Procedure Category Date Status Time Ibuprofen 800 Mg Tab PHA 03/07/25 Transmitted (Motrin) 18:30 Morphine 4mg Syg PHA 03/07/25 Transmitted (Morphine 4mg Syg) 18:30 Ondansetron Odt 4mg PHA 03/07/25 Transmitted Tab (Zofran 4mg Odt) 18:30 Current Medications Medications (Trade) Dose Ordered Sig/Elvia Route PRN Reason Start Time Stop Time Status Last Admin Dose Admin Ibuprofen (moTRIN) 800 mg ONCE ONCE PO 03/07/25 18:30 03/07/25 18:31 UNV Morphine Sulfate (morPHINE 4MG SYG) 4 mg ONCE ONCE IM 03/07/25 18:30 03/07/25 18:31 UNV Ondansetron HCl (zoFRAN 4MG ODT) 4 mg ONCE ONCE SL 03/07/25 18:30 03/07/25 18:31 UNV Vital Signs Date Time Temp Pulse Resp B/P (MAP) Pulse Ox O2 Delivery O2 Flow Rate FiO2 03/07/25 18:24 98.4 100 20 158/87 99 Room Air 0 1832/PATIENT WAS GIVEN A SHOT OF MORPHINE WITH SOME IBUPROFEN AND SOME ZOFRAN FOR NAUSEA. I ADVISED HER TO FOLLOW BACK UP WITH THE ORTHOPEDIC SURGEON TOMORROW AT THE HOSPITAL WHERE HE PERFORM SURGERY FOR INTRACTABLE PAIN AND MANAGEMENT. SHE SAID HER DAUGHTER WOULD BE TAKEN HER TONIGHT TO [facility]. Medical Decision Making MDM MEDICAL DECISION-MAKING BASED ON EMPIRIC TREATMENT FOR POST SURGICAL LEFT HIP REPLACEMENT PAIN. PATIENT HAS TYLENOL NO. 3 WITH IBUPROFEN AT HOME. SHE HAS NOT TAKEN ANYTHING YOU SINCE YESTERDAY BECAUSE IT CONSTIPATES HER. I TOLD HER I WOULD GIVE HER A SHOT OF MORPHINE WITH SOME ZOFRAN AND HAVE HER FOLLOW [facility] DX & DISP Disposition: Discharge Departure Impression: Primary Impression: Acute postoperative pain of left hip Condition: Stable Additional Instructions: FOLLOW-UP WITH PRIMARY CARE PROVIDER IN 1 TO 2 DAYS. TAKE MEDICATIONS DIRECTED HERE IN THE EMERGENCY ROOM. OKAY TO CONTINUE HOME MEDICATIONS UNLESS OTHERWISE DISCUSSED DURING YOUR VISIT IN THE EMERGENCY ROOM TODAY. RETURN TO YOUR NEAREST EMERGENCY ROOM IF SYMPTOMS WORSEN OR IF THERE IS NO IMPROVEMENT. CALL 911 IF YOU NEED IMMEDIATE ASSISTANCE. TAKE TYLENOL OR MOTRIN [id number] NEEDED AND IF NO CONTRAINDICATIONS ARE PRESENT. INCREASE ORAL HYDRATION. A WOUND CULTURE OR URINE CULTURE WAS ORDERED HERE IN THE EMERGENCY ROOM DEPARTMENT PLEASE FOLLOW-UP WITH PRIMARY CARE PROVIDER AND ADVISE THEM TO GET REPEAT PORTS FROM OUR FACILITY. IF YOU HAD ANY ARIANNA WRAP/SPLINTS THAT WERE APPLIED HERE, PLEASE DO NOT REMOVE THEM UNTIL YOU SEE YOUR PRIMARY CARE OR SPECIALTY. CONTINUE YOUR MEDICATIONS FROM DR. MARIO WALKER/ORTHOPEDIC SURGEON AND SEE HIM AT HIS HOSPITAL TOMORROW WITHOUT FAIL FOR MANAGEMENT OF YOUR PAIN. Referrals: JADA JENNINGS (PCP) Time of Disposition: 18:34 I have reviewed the case, and I agree with, Diagnosis and Plan ANDI LOPEZ NP Mar 07, 2025 18:35
[2025-03-07 19:33] VITALS: BP 154/82; PULSE 98; RESP 18; TEMP 98.4; O2SAT 98
== END 2025-03-07 19:59 | disposition home or self-care (01) ==
LOC: EDH 18:22
DX: G89.18 Other acute postprocedural pain (principal); M25.552 Pain in left hip; F41.9 Anxiety disorder, unspecified; E03.9 Hypothyroidism, unspecified; F17.200 Nicotine dependence, unspecified, uncomplicated; Z79.899 Other long term (current) drug therapy; Z90.710 Acquired absence of both cervix and uterus; Z96.649 Presence of unspecified artificial hip joint
CPT/HCPCS: 99283; 96372; J2270

== ENCOUNTER → 2025-05-03 | Outpatient (CLI) | payer OTHER ==
--- NOTE | 2025-05-04 01:23 | HMCIMG ---
EXAM: CR LEFT HIP, 3 VIEWS CLINICAL HISTORY: Left hip osteoarthritis. COMPARISON: None provided TECHNIQUE: Three views of the left hip. FINDINGS: Bones: Total left hip arthroplasty seen. No periprosthetic lucency. No prosthesis break. Metallic density medial to left femoral shaft - may represent artifact. Osteopenia. Tiny osseous density in left hemipelvis with lucent center - likely phlebolith. No acute injury visualized. Joints: Subtle irregularity and subchondral lucencies seen at symphysis pubis - may represent osteitis pubis. Preservation of the joint space. Soft tissues: Visualized gut loops in pelvis are normal in calibre. IMPRESSION: * Total left hip arthroplasty without periprosthetic lucency or hardware failure. * Subtle irregularity and subchondral lucencies at the symphysis pubis, which may represent osteitis pubis. /[place]
== END | disposition home or self-care (01) ==
LOC: RAH 14:27
PROVIDERS: ATTEND Internal Medicine
DX: M16.12 Unilateral primary osteoarthritis, left hip (principal); M85.88 Other specified disorders of bone density and structure, other site; Z96.642 Presence of left artificial hip joint
CPT/HCPCS: 73502